=== PATIENT | female | born 1985 | race Caucasian/White ===

== ENCOUNTER 2024-03-26 16:50 | Emergency (ER) | payer BC ==
[2024-03-26] MEDS: Ketorolac 30 MG/ML SDV IM ONE (20:01)
== END 2024-03-26 20:50 | disposition home or self-care (01) ==
LOC: JP.ED 16:50
DX: S80.11XA Contusion of right lower leg, initial encounter (principal); E03.9 Hypothyroidism, unspecified; Z79.899 Other long term (current) drug therapy; Z79.890 Hormone replacement therapy; Z88.0 Allergy status to penicillin; W22.8XXA Striking against or struck by other objects, initial encounter
CPT/HCPCS: 73590; 96372; 99283; J1885